=== PATIENT | male | born 1995 | race African-American/Black ===

== ENCOUNTER 2017-02-09 09:06 | Emergency (ER) | payer MEDICARE, OTHER ==
[~2017-02-09] VITALS: Ht 172.7 cm; Wt 111.4 kg
[~2017-02-09 09:06] MED LIST: ALBU8.5H3 IH
[2017-02-09] MEDS ORDERED: ALBUTEROL SULFATE 5 MG/ML 20 ML NEB SOLN [BULK] NEB ONE (09:15)
[2017-02-09] MEDS ORDERED: PredniSONE 20 MG TABLET PO ONE (09:15)
[2017-02-09] MEDS ORDERED: IPRATROPIUM BROMIDE 0.5 MG/2.5 ML NEB SOLUTION NEB ONE (09:15)
[2017-02-09] MEDS ORDERED: 0.9% SODIUM CHLORIDE 5 ML NEB SOLUTION NEB ONE (09:43)
[2017-02-09 10:31] VITALS: BP 136/90
[2017-02-09] MEDS ORDERED: ALBUTEROL SULFATE HFA 90 MCG/PUFF 8 GM INHALER IH ONE (11:15)
== END 2017-02-09 11:17 | disposition home or self-care (01) ==
LOC: EMS 09:06
DX: J45.909 Unspecified asthma, uncomplicated (principal); I10 Essential (primary) hypertension
CPT/HCPCS: 94644; 99285; J7512; J3535